=== PATIENT | female | born 1985 | race Caucasian/White ===

== ENCOUNTER 2017-10-10 11:07 | Emergency (ER) | payer MEDICAID, OTHER ==
[2017-10-10 11:53] VITALS: BP 121/61
--- NOTE | 2017-10-10 12:05 | UC ---
Complaint Female HPI - HPI Summary HPI Summary: Pt presents with urinary frequency, pressure, and blood in her urine for 2 days. She tells me she gets a UTI once or twice a year, but they usually resolve on their own. No hx of kidney stones. Denies fever, chills, flank pain, vaginal pain/discharge/bleeding, SOB, chest pain, abdominal pain, N/V/d/C - History Of Current Complaint Chief Complaint: UCGU Stated Complaint: POSS UTI Time Seen by Provider: 10/10/17 12:04 Hx Obtained From: Patient Hx Last Menstrual Period: 09/29/17 Onset/Duration: Gradual Onset Timing: Constant Severity Initially: Mild Severity Currently: Mild Pain Intensity: 3 Pain Scale Used: 0-10 Numeric Character: Burning, Cramping - Allergies/Home Medications Allergies/Adverse Reactions: Allergies Allergy/AdvReac Type Severity Reaction Status Date / Time No Known Allergies Allergy Verified 10/10/17 11:53 Home Medications: Home Medications Cholecalciferol [Vitamin D] 1 tab PO DAILY 10/10/17 [History Confirmed 10/10/17] Ferrous Fumarate [Iron] 1 tab PO DAILY 10/10/17 [History Confirmed 10/10/17] Lactobacillus [Probiotic] 1 tab PO DAILY 10/10/17 [History Confirmed 10/10/17] Misc Natural Products [Cran-B-Otc] 1 tab PO DAILY PRN 10/10/17 [History Confirmed 10/10/17] PMH/Surg Hx/FS Hx/Imm Hx Previously Healthy: Yes - Surgical History Surgical History: None - Social History Occupation: Employed Full-time Lives: With Family Alcohol Use: Weekly Substance Use Type: None Smoking Status (MU): Current Some Day Smoker Amount Used/How Often: 1-2 cig/ 3-5 x weekly Household Exposure Type: Cigarettes Cessation Counseling: Counseled 3+Min - 10 Min - Immunization History Most Recent Influenza Vaccination: NOT UTD Review of Systems Constitutional: Negative Respiratory: Negative Cardiovascular: Negative Gastrointestinal: Negative Genitourinary: Dysuria, Hematuria, Frequency, Urgency Neurovascular: Negative Neurological: Negative Psychological: Negative All Other Systems Reviewed And Are Negative: Yes Physical Exam Triage Information Reviewed: Yes Appearance: Well-Appearing, Well-Nourished Vital Signs: Initial Vital Signs Temp 98.1 F 10/10/17 11:48 Pulse 89 12/22/17 11:48 Resp 16 10/10/17 11:48 BP 121/61 10/10/17 11:48 Pulse Ox 100 10/10/17 11:48 Vital Signs Reviewed: Yes Neck: Positive: Supple, Nontender, No Lymphadenopathy Respiratory: Positive: Chest non-tender, Lungs clear, Normal breath sounds, No respiratory distress, No accessory muscle use Cardiovascular: Positive: RRR, No Murmur, Pulses Normal Abdomen Description: Positive: Nontender, No Organomegaly, Soft. Negative: CVA Tenderness (R), CVA Tenderness (L), Distended, Guarding, Hepatomegaly, Splenomegaly Neurological: Positive: Alert Psychological: Positive: Age Appropriate Behavior Skin: Negative: rashes Complaint Female Dx - Course Course Of Treatment: Urine POC revealed: 2+ Leuk and 2+ blood. Will send for culture and treat with Bactrim x3d - Differential Dx/Diagnosis Differential Diagnosis/HQI/PQRI: Ureteral Stone, Urinary Tract Infection Provider Diagnoses: UTI Discharge - Discharge Plan Condition: Stable Disposition: HOME Prescriptions: Sulfamethox/Trimethoprim DS* [Bactrim DS 800/160 TAB*] 1 tab PO BID #6 tab Patient Education Materials: Urinary Tract Infection in Women (ED) Referrals: Shauna Fernandes [Primary Care Provider] - Additional Instructions: If you develop a fever, SOB, chest pain, new or worsening symptoms - please call your PCP or go to the ED.
== END 2017-10-10 12:34 | disposition home or self-care (01) ==
LOC: UCEAST 11:07
DX: N39.0 Urinary tract infection, site not specified (principal); F17.210 Nicotine dependence, cigarettes, uncomplicated
CPT/HCPCS: 81003; 99212; G0463